=== PATIENT | male | born 1985 | race Caucasian/White ===

== ENCOUNTER 2023-11-22 09:38 | Emergency (ER) | payer MEDICAID, SELFPAY ==
[2023-11-22 09:41] VITALS: BP 151/101; PULSE 98; RESP 16; TEMP 36.8; O2SAT 95; BMI 36.2
--- NOTE | 2023-11-22 09:52 | PC.NURSE ---
Dr. Slaughter at [facility] for pt eval
--- NOTE | 2023-11-22 10:06 | ED_ITS ---
Discharge Plan Disposition Patient Disposition: Home, Self-Care Prescriptions Prescriptions: New amoxicillin-pot clavulanate 875-125 mg tablet 1 tab PO BID 10 Days Qty: 20 0RF Referrals Follow up/Referrals: Provider,Referral, [Primary Care Provider] - See instructions Activity Restrictions/Add. Instructions Additional Instructions/Restrictions: Please follow-up with Dr. Goff or below you may find information on [facility] walk-in clinic you may take Tylenol and ibuprofen as needed for your pain. Location:?[facility], [address] [place] [address] [facility] is a walk-in clinic for patients, 14 years of age and older, needing immediate care due to dental pain and swelling. Clinic registration is open 7:45-10:30 am, Sunday through Sunday (closed on holidays and other dates-see below). Patients are seen on a first come, first served basis and may experience wait times. Services are only available for a select number of patients each day.? ? Patients are evaluated by expert dentists, and treated by dental students. If a patient's needs are too great or do not meet the educational needs of dental students, they may be referred to another dental clinic.? ? Payment Details A $128 evaluation fee, which includes an examination and X-ray, is due upon registration. An additional payment will be required at time of service depending on treatment provided and any insurance benefits.?? Dentistry accepts check, money order, VISA, MasterCard, Discover, and [employer]. Clinical Impressions Clinical Impression: Infected dental caries, Facial cellulitis Discharge ED Provider: Primo Slaughter General Adult HPI General Stated complaint: broken wisdom tooth, headache, toothache Time Seen by Provider: 11/22/23 09:48 History of Present Illness HPI narrative: Patient is a 38-year-old male presents today with dental pain and broken and fractured wisdom tooth on the mandibular region on the right side. States he had a little swelling on the right side of his face as well no fevers or chills. States he is not okay with needles and refuses any type of nerve block etc. Capps s not seen a dentist and does not have one at the moment. Related Data Previous Rx's Medication Instructions Recorded amoxicillin 875 mg-potassium 1 tab PO BID 10 days #20 tabs 11/22/23 clavulanate 125 mg tablet Allergies Allergy/AdvReac Type Severity Reaction Status Date / Time No Known Allergies Allergy Verified 11/22/23 09:56 [facility] Disclaimer: The information contained in this section may have been updated after the patient was seen, as this information can be updated by other users. Social History Smoking Status: Unknown if ever smoked alcohol intake: never current occupational status: other Travel in the last 8 weeks: None ROS Obtained: Yes All systems reviewed & no additional complaints except as documented Physical Exam General General appearance: alert ENT ENT exam: Present other (Right mandibular molar/wisdom tooth is fractured and there is erythema and swelling surrounding this with significant tenderness and some necrosis in the central aspect of the tooth slight soft tissue swelling on the right lateral aspect of the face as well) Respiratory Respiratory exam: Present normal lung sounds bilaterally Cardiovascular Cardiovascular exam: Present regular rate Neurological Exam Neurological exam: Present alert Medical Decision Making Hernandez Inquiry Pt receiving controlled substance: No Orders (Tests/Meds): ED MEDICATIONS Discontinued Medications Generic Name Dose Route Start Last Admin Trade Name Abramq PRN Reason Stop Dose Admin Amoxicillin/Clavulanate Potassium 1 each 11/22/23 09:55 Amoxicillin/Clavulanate Potassium 875/125mg Tablet PO 11/22/23 09:56 ONCE ONE Medical Decision Narrative: 38-year-old male presenting today with fracture dental caries and what appears to be an odontogenic infection with mild facial cellulitis. Dose of Augmentin was given as well as a prescription. Patient was given dental balls for symptomatic improvement and told to take Tylenol and ibuprofen. Lastly patient was offered a dental block but he refused this. He was given referral to Dr. Goff here in [facility] as well as information to follow-up with [facility] urgent care or walk-in clinic. Critical Care Critical Care Time Critical Care Time: No
[2023-11-22] MEDS: AMOXICILLIN/CLAVULANATE POTASSIUM 875/125MG TABLET 1 EACH PO (10:10)
[2023-11-22] MEDS: LIDOCAINE 2% VISCOUS SOL 15ML UDC 15 ML PO (10:11)
[2023-11-22 10:16] VITALS: BP 147/98; PULSE 61; RESP 16; TEMP 36.8; O2SAT 94
== END 2023-11-22 10:18 | disposition home or self-care (01) ==
LOC: ER 10:16
PROVIDERS: Emergency Provider Student in an Organized Health Care Education/Training Program
DX: L03.211 Cellulitis of face (principal); K02.9 Dental caries, unspecified
CPT/HCPCS: 99283

== ENCOUNTER 2024-01-25 08:57 | Emergency (ER) | payer MEDICAID, SELFPAY ==
[2024-01-25 08:58] VITALS: BP 144/101; PULSE 86; RESP 20; TEMP 36.9; O2SAT 97; BMI 34.8
[2024-01-25 09:08] VITALS: BP 144/101; PULSE 88; O2SAT 97
--- NOTE | 2024-01-25 09:31 | CT_ITS ---
FINAL REPORT TECHNIQUE: Axial CT images were performed through the head. Coronal and sagittal reformatted images were submitted. This study was performed with techniques to keep radiation doses as low as reasonably achievable (ALARA). Individualized dose reduction techniques using automated exposure control or adjustment of mA and/or kV according to the patient's size were employed. CLINICAL HISTORY: persistent pain/BOTELLO/L face swelling COMPARISON: None FINDINGS: The ventricles are normal in size. There is no evidence of hemorrhage. There is no mass or edema identified. There is no abnormal extra-axial fluid seen. There is mild mucoperiosteal thickening of the left maxillary sinus. There are no air-fluid levels. IMPRESSION: No acute intracranial process. Reviewed, Interpreted and Dictated by Zach Kaplan MD Transcribed by Barbara Garcia Authenticated and [facility]
--- NOTE | 2024-01-25 09:33 | ED_ITS ---
Discharge Plan Disposition Patient Disposition: Home, Self-Care Prescriptions Prescriptions: New ondansetron 4 mg tablet,disintegrating 4 mg PO Q8H PRN (Reason: nausea and vomiting) 3 Days Qty: 10 0RF No Action amoxicillin-pot clavulanate 875-125 mg tablet 1 tab PO BID 10 Days Qty: 20 0RF Referrals Follow up/Referrals: Nash Ceron [Primary Care Provider] - See instructions Activity Restrictions/Add. Instructions Additional Instructions/Restrictions: You were evaluated in the ER. You are appropriate for discharge at this time. Continue taking your previously prescribed antibiotics as directed, do not skip doses, do not stop taking them early. Continue taking Tylenol and ibuprofen. You can apply a cool compress to the left side of the face if needed for pain. Drink plenty of water. Take the prescribed Zofran if needed for nausea. Make an appointment with your primary care physician for reevaluation in 2 to 3 days. Return to the ER with any new, worsening, or otherwise concerning symptoms as discussed. Clinical Impressions Clinical Impression: Cellulitis of external nose Discharge ED Provider: Ben Austin General Adult HPI General Chief complaint: PAIN Stated complaint: vomiting, SOA, MRSA on nose, dizziness, face pain Time Seen by Provider: 01/25/24 09:24 Mode of Arrival: Ambulatory Source of Information: Patient Limitations: No Limitations Description of Symptoms (Recalled from ER Triage Doc. by RN): Patient states he had a spot come up on his nose 4-5 days ago was dx with MRSA yesterday and was started on Bactrim. Some left sided facial pain. Patient states BOTELLO and x1 vomiting today. History of Present Illness HPI narrative: Otherwise healthy 38-year-old male presents to the ER with concerns of swelling of the nose and left-sided facial pain. Patient states he is also having headache. Patient states he had a spot On his nose 4 to 5 days ago that he thought was a pimple, but the swelling was worse yesterday so on his way home from his brothers he stopped at [facility] and was diagnosed with MRSA. He was started on Bactrim and Keflex. Patient states the swelling in the left side of his face has worsened since 1:00 this morning. He states he has headache as well. He states he feels a sensation of pressure behind his eyes. Patient states he took his Bactrim this morning but due to difficulty breathing through the nose had emesis once this morning. Related Data Previous Rx's Medication Instructions Recorded amoxicillin 875 mg-potassium 1 tab PO BID 10 days #20 tabs 11/22/23 clavulanate 125 mg tablet ondansetron 4 mg disintegrating 4 mg PO Q8H PRN nausea and 01/25/24 tablet vomiting 3 days #10 tabs Allergies Allergy/AdvReac Type Severity Reaction Status Date / Time No Known Allergies Allergy Verified 11/22/23 09:56 [facility] Disclaimer: The information contained in this section may have been updated after the patient was seen, as this information can be updated by other users. Social History (Updated 11/22/23 @ 10:07 by Primo Slaughter MD) Smoking Status: Never smoker alcohol intake: never current occupational status: other Travel in the last 8 weeks: None ROS Obtained: Yes All systems reviewed & no additional complaints except as documented Constitutional Constitutional: Reports headache(s) Eyes Eyes: Reports other (Complaint of pressure behind the eyes) ENT Ears, Nose, Mouth, and Throat: Reports facial pain, Reports headache(s), Reports nasal congestion and Reports nose pain Comments: Swelling of the left side of the face, redness at the tip of the nose Cardiovascular Cardiovascular: Denies chest pain and Denies dyspnea Respiratory Respiratory: Denies dyspnea Gastrointestinal Gastrointestingal: Reports vomiting; Denies abdominal pain or nausea Musculoskeletal Musculoskeletal: Denies tingling Neurologic Neurologic: Denies confusion, Denies focal weakness, Reports headache(s) and Denies tingling Physical Exam General General appearance: alert and in no apparent distress Head Head exam: atraumatic, normocephalic and other (Swelling of the left side of the face from the eyebrow to the cheek, no erythema, no induration, no crepitus) Eye Eye exam: Present PERRL, EOMI (Full, painless) and other (No proptosis of the eyes) ENT ENT exam: Present mucous membranes moist and other (Erythema at the tip of the nose approximately 2 cm in diameter with indurated tissue, inflammation of the nasal mucosa in the left naris, no fluctuance appreciated) Neck Neck exam: Present normal inspection and full ROM Chest Chest inspection: Present symmetric chest wall rise Respiratory Respiratory exam: Absent respiratory distress or stridor Cardiovascular Cardiovascular exam: Present regular rate and normal rhythm Abdominal Exam Abdominal exam: Present soft; Absent distention or tenderness Extremities Exam Extremities exam: Present full ROM Neurological Exam Neurological exam: Present alert and oriented X3; Absent motor sensory deficit Psychiatric Psychiatric exam: Present normal affect and normal mood Skin Skin exam: Present warm, dry and erythema (On nose as described in physical exam) Medical Decision Making Medical Records Medical records reviewed: Yes I reviewed the patient's medical records. Hernandez Inquiry Pt receiving controlled substance: No Vital Signs: 01/25/24 08:58 01/25/24 09:08 Temperature 98.5 F Temperature Source Oral Pulse Rate 88 Pulse Rate [Right Radial] 86 Respiratory Rate 20 Blood Pressure 144/101 H Blood Pressure [Right Arm] 144/101 H Blood Pressure Mean [Right Arm] 115 Blood Pressure Source [Right Arm] Automatic Cuff Blood Pressure Position [Right Arm] Sitting 02 Sat by Pulse Oximetry 97 97 Oxygen Delivery Method Room Air Orders (Tests/Meds): ED MEDICATIONS Discontinued Medications Generic Name Dose Route Start Last Admin Trade Name Freq PRN Reason Stop Dose Admin Acetaminophen 1,000 mg 01/25/24 09:31 01/25/24 09:39 Acetaminophen 500mg Tab PO 01/25/24 09:32 1,000 mg ONCE ONE Administration Cephalexin HCl 500 mg 01/25/24 09:36 01/25/24 09:40 Cephalexin 500mg Capsule PO 01/25/24 09:37 500 mg ONCE ONE Administration Ibuprofen 600 mg 01/25/24 09:31 01/25/24 09:39 Ibuprofen 600 Mg Tablet PO 01/25/24 09:32 600 mg ONCE ONE Administration Ondansetron HCl 4 mg 01/25/24 09:35 01/25/24 09:39 Ondansetron 4mg Odt SL 01/25/24 09:36 4 mg ONCE ONE Administration Oxycodone HCl 5 mg 01/25/24 10:56 01/25/24 11:02 Oxycodone 5mg Immediate Release Tablet PO 01/25/24 10:57 5 mg ONCE ONE Administration Trimethoprim/Sulfamethoxazole 1 each 01/25/24 09:31 01/25/24 09:39 Sulfa/Trimethoprim 1 Tablet PO 01/25/24 09:32 1 each ONCE ONE Administration ORDERS Category Date Time Status CT facial bones wo con Stat Cat Scan 01/25/24 09:[address] head/brain wo con Stat Cat Scan 01/25/24 09:31 Completed BMP [Basic Metabolic Panel] Stat Lab 01/25/24 09:31 Ordered CBC w/Auto Diff [Complete Blood Count Auto Diff] Stat Lab 01/25/24 09:31 Narciso victoria Medical Decision Narrative: In summary, this 38year old male presents to the emergency department today with nasal redness, pain, left facial swelling, headache. On initial evaluation patient is hemodynamically stable, afebrile, GCS 15, no focal deficit, patient has erythema of the tip of the nose with induration, swelling into the left salty s, mild tenderness over the left face with swelling that is not indurated, no fluctuance, no proptosis of the eye, extraocular movements full and painless, no changes in vision. Differential diagnosis includes but is not limited to facial cellulitis, abscess, considered preseptal cellulitis, considered orbital cellulitis though I have lower suspicion for this without proptosis or painful extraocular movements, also considered sinusitis and with patient's persistent headache possible intracranial lesion. Based on these concerns, I ordered imaging of the head and face. Patient received Tylenol, ibuprofen, Zofran for treatment. He had also had emesis shortly after taking his Keflex and Bactrim this morning so he received doses of these. Patient refused an IV, basic labs, and contrasted CT scan. Noncon CT head and face were still performed. CT head personally interpreted does not demonstrate any acute intracranial abnormality, CT face does not demonstrate any findings of abscess or retro- orbital abnormality on my personal interpretation. See radiology reads for final interpretation. Patient continued complaining of pain and received 1 dose of oral oxycodone in the ER. He will not be prescribed any narcotics at this time. I did prescribe Zofran for nausea. I encouraged him to continue taking his Bactrim and cephalexin as previously prescribed. I gave him strict return precautions including monitoring for findings of vesicles, proptosis, pain with extraocular movements, or development of abscess, among others. Patient was given instructions on symptomatic management, follow up instructions, and return precautions for the emergency department. Patient indicated understanding and was discharged in stable condition. Critical Care Critical Care Time Critical Care Time: No
[2024-01-25] MEDS: IBUPROFEN 600 MG TABLET PO (09:39)
[2024-01-25] MEDS: ACETAMINOPHEN 500MG TAB 1000 MG PO (09:39)
[2024-01-25] MEDS: SULFA/TRIMETHOPRIM 1 TABLET 1 EACH PO (09:39)
[2024-01-25] MEDS: ONDANSETRON 4MG ODT 4 MG SL (09:39)
[2024-01-25] MEDS: cephALEXin 500MG CAPSULE 500 MG PO (09:40)
--- NOTE | 2024-01-25 09:55 | CT_ITS ---
FINAL REPORT CLINICAL HISTORY: cellulitis of nose/facial swelling COMPARISON: None FINDINGS: There is mild mucoperiosteal thickening in the left maxillary sinus. There is no fracture. There are no air-fluid levels. The OMU's are patent. IMPRESSION: Mild mucoperiosteal thickening left maxillary sinus. Reviewed, Interpreted and Dictated by Zach Kaplan MD Transcribed by Barbara Garcia Authenticated and [facility]
[2024-01-25] MEDS: OXYCODONE 5MG IMMEDIATE RELEASE TABLET 5 MG PO (11:02)
[2024-01-25 11:22] VITALS: BP 130/97; PULSE 80; RESP 18; TEMP 36.9; O2SAT 99
== END 2024-01-25 11:25 | disposition home or self-care (01) ==
PROVIDERS: Emergency Provider Emergency Medicine; PCP Orthopaedic Surgery
DX: L03.211 Cellulitis of face (principal); R06.02 Shortness of breath; R51.9 Headache, unspecified; R11.10 Vomiting, unspecified; R22.0 Localized swelling, mass and lump, head
CPT/HCPCS: 70450; 70486; 99285

== ENCOUNTER 2025-02-04 17:01 | Emergency (ER) | payer MEDICAID, SELFPAY ==
[2025-02-04 17:17] VITALS: BP 132/79; PULSE 89; RESP 20; TEMP 36.8; O2SAT 98; BMI 35.2
--- NOTE | 2025-02-04 17:31 | ED_ITS ---
Discharge Plan Disposition Patient Disposition: Home, Self-Care Condition: Good Prescriptions Prescriptions: No Action amoxicillin-pot clavulanate 875-125 mg tablet 1 tab PO BID 10 Days Qty: 20 0RF ondansetron 4 mg tablet,disintegrating 4 mg PO Q8H PRN (Reason: nausea and vomiting) 3 Days Qty: 10 0RF Referrals Follow up/Referrals: Gee Rodriguez MD [Primary Care Provider] - See instructions Activity Restrictions/Add. Instructions Additional Instructions/Restrictions: Debrox drops 5 drops for 5 days once a month Do not use Q-tips Follow-up with PCP Return for any symptoms or concerns Clinical Impressions Clinical Impression: Impacted cerumen of both ears Instructions Patient Instructions: DI for Cerumen Impaction Print Language Print Language: Vincentian Discharge ED Provider: Steve Greenwood General Adult HPI <Monse Bland ([facility] [[email or web address] [employer]ARNIVAL WORKER - Last Filed: 02/04/25 17:43> General Chief complaint: Ear Stated complaint: ears sting barely hear, hard to swallow. Time Seen by Provider: 02/04/25 17:10 Mode of Arrival: Ambulatory Source of Information: Patient Description of Symptoms (Recalled from ER Triage Doc. by RN): patient presents to ED with ear ache in both ears. Patient states it started last night. History of Present Illness HPI narrative: 39-year-old male presents for bilateral ear pain, and difficulty hearing since last night. Related Data Previous Rx's ?Medication ?Instructions ?Recorded amoxicillin 875 mg-potassium 1 tab PO BID 10 days #20 tabs 11/22/23 clavulanate 125 mg tablet ondansetron 4 mg disintegrating 4 mg PO Q8H PRN nausea and 01/25/24 tablet vomiting 3 days #10 tabs Allergies Allergy/AdvReac Type Severity Reaction Status Date / Time No Known Allergies Allergy Verified 11/22/23 09:56 PFSH <Monse Bland ([facility] [[email or web address] CARNIVAL WORKER - Last Filed: 02/04/25 17:43> PFS Disclaimer: The information contained in this section may have been updated after the patient was seen, as this information can be updated by other users. Social History (Reviewed 02/04/25 @ 17:39 by Monse Bland ([facility] [[email or web address] CARNIV[employer] WORKER) Smoking Status: Never smoker alcohol intake: never current occupational status: other Travel in the last 8 weeks?: None Have you lived/traveled outside [place] in past 30 days?: No Contact w/someone who lives/traveled outside US past 30 days?: No Exposure to someone with infectious disease in past 14 days?: No Do you have a fever (greater than 100.4 F or 38 C)?: No Have you tested positive for COVID-19?: No Exposed to someone with COVID-19 in past 14 days?: No Do you have a sore throat?: No Do you have a cough?: No Do you have any weakness?: No Do you have any diarrhea?: No Are you experiencing any unusual bleeding?: No Do you have any muscle aches/pain?: No Do you have any abdominal pain?: No Are you experiencing loss of taste or smell?: No <Monse Bland ([facility] [[email or web address] CARNIVAL WORKER - Last Filed: 02/04/25 17:43> ROS Obtained: Yes Systems reviewed as appropriate & no additional complaints except as documented Physical Exam <Monse Bland ([facility] [[email or web address] CARNIVAL WORKER - Last Filed: 02/04/25 17:43> General General appearance: alert and in no apparent distress Eye Eye exam: Present normal appearance and PERRL Expanded ENT Exam TM/Canal exam: Bilateral TM: cerumen impaction Respiratory Respiratory exam: Present normal lung sounds bilaterally Cardiovascular Cardiovascular exam: Present regular rate and normal rhythm Neurological Exam Neurological exam: Present alert and oriented X3 Skin Skin exam: Present warm and intact Medical Decision Making <Monse Bland ([facility] [[email or web address] CARNIVAL WORKER - Last Filed: 02/04/25 17:43> Medical Records Medical records reviewed: Yes I reviewed the patient's medical records. Screening: Per USPSTF and CDC recommendations, given the prevalence of disease in our region, it is our hospital?s policy to screen for HIV and viral Hepatitis for all patients aged 18 and over and those with ongoing risk factors. Hernandez Inquiry Pt receiving controlled substance: No Vital Signs: 02/04/25 17:17 02/04/25 17:44 Temperature 98.3 F 98.3 F Temperature Source Oral Oral Pulse Rate 74 Pulse Rate [Right Brachial] 89 Respiratory Rate 20 18 Blood Pressure 132/79 Blood Pressure [Right Arm] 132/79 Blood Pressure Mean [Right Arm] 96 Blood Pressure Source Automatic Cuff Blood Pressure Source [Right Arm] Automatic Cuff Blood Pressure Position Supine Blood Pressure Position [Right Arm] Supine 02 Sat by Pulse Oximetry 98 Oxygen Delivery Method Room Air Room Air Medical Decision Narrative: In summary patient is a 39-year-old male who presents to the emergency department for evaluation of bilateral ear pain and difficulty hearing that started last night. Patient is hemodynamically stable upon arrival, afebrile. Physical exam shows bilateral wax impaction. Differential diagnosis includes cerumen impaction, and otitis media. Initial inventions include bilateral irrigation to remove wax, large amount removed from bilateral ears. Upon repeat evaluation patient states symptoms improved. Given this patient appropriate for discharge will discharge home at this time <Steve Greenwood MD - Last Filed: 02/04/25 22:56> Vital Signs: 02/04/25 17:17 02/04/25 17:44 Temperature 98.3 F 98.3 F Temperature Source Oral Oral Pulse Rate 74 Pulse Rate [Right Brachial] 89 Respiratory Rate 20 18 Blood Pressure 132/79 Blood Pressure [Right Arm] 132/79 Blood Pressure Mean [Right Arm] 96 Blood Pressure Source Automatic Cuff Blood Pressure Source [Right Arm] Automatic Cuff Blood Pressure Position Supine Blood Pressure Position [Right Arm] Supine 02 Sat by Pulse Oximetry 98 Oxygen Delivery Method Room Air Room Air Medical Decision Narrative: In summary patient is a 39-year-old male who presents to the emergency department for evaluation of bilateral ear pain and difficulty hearing that started last night. Patient is hemodynamically stable upon arrival, afebrile. Physical exam shows bilateral wax impaction. Differential diagnosis includes cerumen impaction, foreign body, and otitis media. Initial inventions include bilateral irrigation to remove wax, large amount removed from bilateral ears. Upon repeat evaluation patient states symptoms improved. Given this patient appropriate for discharge will discharge home at this time JERILYN attestation I was consulted by the JERILYN, and we discussed the complexity of problems being addressed. I approved the treatment and management plan for this patient's care in the emergency department, thus performing a substantial portion of the medical decision making. Steve Greenwood MD Critical Care <Monse Bland ([facility] [[email or web address]]), CARNIVAL WORKER - Last Filed: 02/04/25 17:43> Critical Care Time Critical Care Time: No
[2025-02-04 17:44] VITALS: BP 132/79; PULSE 74; RESP 18; TEMP 36.8; O2SAT 98
== END 2025-02-04 17:49 | disposition home or self-care (01) ==
PROVIDERS: Emergency Provider Student in an Organized Health Care Education/Training Program; PCP Student in an Organized Health Care Education/Training Program
DX: H92.03 Otalgia, bilateral (principal); H61.23 Impacted cerumen, bilateral
CPT/HCPCS: 99282